=== PATIENT | male | born 1955 | race Caucasian/White ===

== ENCOUNTER 2018-08-20 11:00 | Day surgery (SDC) | payer BC ==
[2018-08-15 14:23] VITALS: BMI 32.5
[2018-08-20] MEDS ORDERED: LIDOCAINE HCL/PF 2% SDV 5ML VIAL ONE (11:48)
[2018-08-20] MEDS ORDERED: PROPOFOL 20 ML ONE ×3 (11:48)
[2018-08-20 12:37] VITALS: TEMP 97.8
[2018-08-20 15:22] VITALS: BP 110/65; PULSE 61
--- NOTE | 2018-08-22 16:34 | PATH ---
Surgical Pathology Report Patient Name: CRISTIANE MENCHACA [facility]. Rec. #: [id number] /Age/Gender: 1955 (Age: 63) / M Account: [id number] Location: [facility] Taken: 08/20/2018 Received: 08/20/2018 Reported: 08/22/2018 Physicians: Flakito Lynn M.D. Specimen(s) Received LEFT COLON Clinical History History of polyps Postoperative diagnosis: Polyp Final Diagnosis LEFT COLON, POLYP, POLYPECTOMY: VEGETABLE/FECAL MATERIAL. NO COLONIC MUCOSA/TISSUE IS IDENTIFIED. Electronically Signed Becki Hayes M.D. Gross Description Received in formalin labeled "polyp left colon," is a 1.3 x 0.7 x 0.2 cm. aggregate of organic debris. No definite soft tissue is identified grossly. The formalin is filtered and the specimen is entirely submitted in one cassette. /08/20/2018
== END 2018-08-20 13:00 | disposition home or self-care (01) ==
LOC: FASU-ENDO 11:00
PROVIDERS: ATTEND Internal Medicine Gastroenterology
PROC: 0DBM8ZX Excision of Descending Colon, Via Natural or Artificial Opening Endoscopic, Diagnostic (ICD-10-PCS; principal; 2018-08-20 12:00)
DX: Z86.010 Personal history of colon polyps (principal); K63.5 Polyp of colon
CPT/HCPCS: 88305-TC